=== PATIENT | male | born 1995 | race Caucasian/White ===

== ENCOUNTER 2018-11-21 15:19 | Emergency (ER) | payer SELFPAY ==
[~2018-11-21] VITALS: Ht 162.6 cm; Wt 58.2 kg
[~2018-11-21 15:19] MED LIST: IBUP100S2 PO
[2018-11-21 15:25] VITALS: BP 133/66
--- NOTE | 2018-11-21 15:42 | NUR ---
PATIENT PRESENTS TO ED WITH C/O LT ARM/WRIST PAIN, SMALL ABRASION ON LT KNEE S/P FALL TODAY. PT DENIES LOC; AAOX4. PT STATES PAIN IS 8/10 AT THIS TIME. LIMITED ROM TO AFFECTED EXTREMITIES. +PULSES. CAP REFILL <3 SECS. VSS; PATIENT POSITIONED FOR COMFORT; HOB ELEVATED; BEDRAILS UP X1; BED DOWN.
--- NOTE | 2018-11-21 15:52 | NUR ---
DR KIMBLE AT PT BEDSIDE
[2018-11-21] MEDS ORDERED: BACITRACIN OINT 500 UNITS/GM PKT TP ONE (16:00)
[2018-11-21] MEDS ORDERED: ACETAMINOPHEN 325 MG TAB PO ONE (16:00)
--- NOTE | 2018-11-21 16:03 | NUR ---
BILLY EMT AT BEDSIDE FOR WOUND CARE AND SPLINT APPLIED TO L WRIST. PULSE WNL.
--- NOTE | 2018-11-21 16:23 | NUR ---
PAIN 07/05 AT THIS TIME
[2018-11-21 16:24] VITALS: BP 116/64
--- NOTE | 2018-11-21 16:24 | NUR ---
Patient discharged with v/s stable. Written and verbal after care instructions given and explained. Patient alert, oriented and verbalized understanding of instructions. Ambulatory with steady gait. All questions addressed prior to discharge. ID band removed. Patient advised to follow up with PMD. Rx of ACETOMINOPHEN, BACITRACIN given. Patient educated on indication of medication including possible reaction and side effects. Opportunity to ask questions provided and answered.
== END 2018-11-21 16:24 | disposition home or self-care (01) ==
LOC: MED 15:19
DX: S63.502A Unspecified sprain of left wrist, initial encounter (principal); S80.212A Abrasion, left knee, initial encounter; V28.4XXA Motorcycle driver injured in noncollision transport accident in traffic accident, initial encounter; Y93.55 Activity, bike riding; Y92.410 Unspecified street and highway as the place of occurrence of the external cause; Y99.8 Other external cause status; Z79.899 Other long term (current) drug therapy
CPT/HCPCS: 73090; 99283

== ENCOUNTER 2018-11-26 10:55 | Emergency (ER) | payer SELFPAY ==
[~2018-11-26] VITALS: Ht 162.6 cm; Wt 57.2 kg
[2018-11-26 11:26] VITALS: BP 123/89
--- NOTE | 2018-11-26 12:14 | NUR ---
PT TAKEN TO ER BED 02
--- NOTE | 2018-11-26 12:14 | NUR ---
PT AMBULATED TO BED 2 AT THIS TIME
[2018-11-26] MEDS ORDERED: NEOMYCIN/POLYMYXIN/BACITRACIN 0.9 GM/1 PKT TP ONE ×2 (13:00)
[2018-11-26] MEDS ORDERED: cefTRIAXone 1,000 MG in LIDOCAINE 1% ***ER ONLY *** 2.1 ML IM ONE (13:00)
[2018-11-26] MEDS ORDERED: LIDOCAINE 1% 500 MG/50 ML VIAL INJ ONE (13:00)
[2018-11-26] MEDS ORDERED: cefTRIAXone 1,000 MG VIAL ONE (13:17)
[2018-11-26] MEDS ORDERED: LIDOCAINE MPF 1% - 5 mL VIAL 10 ML ONE (13:18)
--- NOTE | 2018-11-26 15:19 | NUR ---
Patient discharged with v/s stable. Written and verbal after care instructions given and explained. Patient alert, oriented and verbalized understanding of instructions. Ambulatory with steady gait. All questions addressed prior to discharge. ID band removed. Patient advised to follow up with PMD. Rx of keflex, ibuprofen, bactrim given. Patient educated on indication of medication including possible reaction and side effects. Opportunity to ask questions provided and answered.
[2018-11-26 15:20] VITALS: BP 125/68
== END 2018-11-26 15:19 | disposition home or self-care (01) ==
LOC: MED 10:55
DX: S01.21XA Laceration without foreign body of nose, initial encounter (principal); Z79.899 Other long term (current) drug therapy; W17.89XA Other fall from one level to another, initial encounter; Y93.89 Activity, other specified; Y92.89 Other specified places as the place of occurrence of the external cause; Y99.8 Other external cause status
CPT/HCPCS: 12011; 70450; 70486; 72125; 90471; 90715; 96372; 99284; J0696; J2001

== ENCOUNTER 2018-12-08 12:13 | Emergency (ER) | payer SELFPAY ==
[~2018-12-08] VITALS: Ht 162.6 cm; Wt 59.0 kg
[2018-12-08 12:15] VITALS: BP 119/75
--- NOTE | 2018-12-08 12:20 | NUR ---
Patient ambulated to bed 12. RN evaluating patient at bedside.
--- NOTE | 2018-12-08 12:30 | NUR ---
PT IS A 23 Y/O MALE WHO PRESENTS TO THE ED C/O SUTURE REMOVAL. PER PT PT HAS SUTURES TO BRIDGE OF NOSE ON 11/26/18. PT DENIES PAIN AT THIS TIME. NOTED SUTURES TO BRIDGE OF NOSE, APPEARS BARILL[place] WHITE CRUST. PT DENIES CP, SOB, N/V/D. PT AWAKE AND ALERT, RR EVEN/UNLABORED. PT REPOSITIONED FOR COMFORT, BED IN LOWEST POSITION. ER MD DR. SHEETS NOTIFIED. WILL CONTINUE TO MONITOR. DENIES PMH NKA
--- NOTE | 2018-12-08 12:32 | NUR ---
Dr. Coburn evaluating patient at bedside.
[2018-12-08] MEDS ORDERED: NEOMYCIN/POLYMYXIN/HC OT SOL. 10 ML BTL ONE (12:46)
--- NOTE | 2018-12-08 12:50 | NUR ---
Patient discharged with v/s stable. Written and verbal after care instructions given and explained. Patient alert, oriented and verbalized understanding of instructions. Ambulatory with steady gait. All questions addressed prior to discharge. ID band removed. Patient advised to follow up with PMD. . Opportunity to ask questions provided and answered.
[2018-12-08 13:00] VITALS: BP 119/75
== END 2018-12-08 12:50 | disposition home or self-care (01) ==
LOC: MED 12:13
DX: Z48.01 Encounter for change or removal of surgical wound dressing (principal); Z79.1 Long term (current) use of non-steroidal anti-inflammatories (NSAID)
CPT/HCPCS: 99282

== ENCOUNTER 2019-02-16 14:21 | Emergency (ER) | payer MEDICAID ==
[~2019-02-16] VITALS: Ht 170.2 cm; Wt 63.5 kg
[2019-02-16 14:21] VITALS: BP 107/55
--- NOTE | 2019-02-16 14:21 | NUR ---
PT WAS IN BED AT 1410. NARCAN ADMINSTERED AT 1420 AND 1422
--- NOTE | 2019-02-16 14:21 | NUR ---
BIB FRIENDS FOR ALOC. NONRESPONSIVE TO PAINFUL STIMULI. UNREPSONSIVE TO STERNAL RUB. UNRESPONSIVE TO AMMONIA. PIN POINT PUPILS. FLACCID ARMS. GCS 3. RADIAL PULSE WEAK. WHEELCHAIRED TO BED 9, PLACED ON MONITOR. IV INSERTED. ERMD PRESENT. PMH- UNKNOWN
--- NOTE | 2019-02-16 14:21 | NUR ---
PT IN WHEELCHAIR TO ER BED 09
--- NOTE | 2019-02-16 14:21 | NUR ---
DR OCHOA AT BEDSIDE.
--- NOTE | 2019-02-16 14:29 | NUR ---
NARCAN DOSE 2 MG IVP, PATIENT RESPONDING AFTER FIRST DOSE OF NARCAN
--- NOTE | 2019-02-16 14:33 | NUR ---
PT RESPONDING TO ANSWERS. VSS. ALERT AND AWAKE.
[2019-02-16] MEDS ORDERED: NALOXONE 0.4 MG/ML VIAL IVP ONE ×2 (14:35)
--- NOTE | 2019-02-16 14:37 | NUR ---
1 L FLUID BOLUS STARTED MO DR DON KOHLI
[2019-02-16] MEDS ORDERED: NACL 0.9% 1,000 ML IV ONE (14:40)
--- NOTE | 2019-02-16 14:46 | NUR ---
PT INFORMED THAT URINE SAMPLE IS NEEDED
--- NOTE | 2019-02-16 14:49 | NUR ---
PATIENT STATES THAT HE TOOK HALF A PILL OF PERCOCET, UNKNOWN MG AND UNKNOWN TIME
--- NOTE | 2019-02-16 14:59 | NUR ---
LAB AT BEDSIDE
--- NOTE | 2019-02-16 14:59 | NUR ---
SPOKE WITH CHI FROM POISON CONTROL, RECOMMENDS MONITOR FOR AT LEAST 4 HOURS, COMPLETE METABOLIC PANEL, AND TOXIC SCREEN.
--- NOTE | 2019-02-16 15:05 | NUR ---
VSS AT THIS TIME.
[2019-02-16 15:11] LABS: BASOPHILS # (AUTO) 0.1 K/uL (0.00-0.22); BASOPHILS % (AUTO) 0.9 % (0.0-2.0); EOSINOPHILS # (AUTO) 0.1 K/uL (0-0.4); EOSINOPHILS % (AUTO) 0.8 % (0.0-4.0); HEMATOCRIT 39.8 % (36-52); HEMOGLOBIN 13.3 g/dL (12.0-18.0); LYMPHOCYTES # (AUTO) 1.5 K/uL (2.0-11.5); LYMPHOCYTES % (AUTO) 21.2 % (20.5-51.1); MEAN CORPUSCULAR HEMOGLOBIN 31 pg (27-31); MEAN CORPUSCULAR HGB CONC 33 g/dL (33-37); MEAN CORPUSCULAR VOLUME 93.1 fL (80-94); MONOCYTES # (AUTO) 0.6 K/uL (0.8-1.0); MONOCYTES % (AUTO) 8.4 % (1.7-9.3); NEUTROPHILS % (AUTO) 68.7 % (42.2-75.2); PLATELET COUNT (AUTO) 197 K/uL (140-450); RED BLOOD CELL COUNT(AUTO) 4.27 MIL/uL (4.20-6.10); RED CELL DISTRIBUTION WIDTH 14.1 % (11.6-13.7); WHITE BLOOD COUNT (AUTO) 7.3 K/uL (4.8-10.8)
--- NOTE | 2019-02-16 15:19 | NUR ---
PT UNABLE TO GIVE URINE, WATER GIVEN TO PT
--- NOTE | 2019-02-16 15:22 | NUR ---
PT AA0X4. RESPONDING TO VOICE. MILD ARM WEAKNESS, EQUAL ARM METAL BALER. FACIAL SYMMETRY. MEMORY INTACT.
--- NOTE | 2019-02-16 15:25 | NUR ---
BRISK PUPIL REACTION, 2MM, PERRLA
[2019-02-16] MEDS ORDERED: AMMONIA AROMATIC 1 INHL INH ONE (15:30)
[2019-02-16 15:32] LABS: ANION GAP 14.7 (8-16); CARBON DIOXIDE 26.3 mmol/L (21-32); TOTAL BILIRUBIN 0.8 mg/dL (0.0-1.0)
--- NOTE | 2019-02-16 15:55 | NUR ---
# 14 FR Urinary catheter inserted utilizing sterile technique. Immediate return of 50 ml YELLOW urine noted. Urine sample collected and sent to lab. Pt tolerated procedure WELL.
--- NOTE | 2019-02-16 16:07 | NUR ---
AA0X4. [place] TO VOICE. CLEAR SPEECH. PT RESTING IN BED AND BEING COOPERATIVE. MILD WEAKNESS IN BOTH ARMS-PURPOSEFULL MOVEMENT. PUPILS 2 MM AND RESPONSIVE TO LIGHT.
[2019-02-16 16:19] LABS: BARBITURATE, URINE NEG. ng/ml (NEG <=200); BENZODIAZEPINE, URINE POS. ng/mL (NEG <=200); CANNABINOID, URINE POS. ng/mL (NEG <=50); COCAINE, URINE NEG. ng/mL (NEG <=300); OPIATE, URINE NEG. ng/mL (NEG <=2000); PHENCYCLIDINE SCREEN,URINE NEG. ng/mL (NEG <=25)
[2019-02-16 16:56] LABS: APPEARANCE,URINE CLEAR (CLEAR); BILIRUBIN,URINE NEGATIVE (NEGATIVE); BLOOD, URINE 1+ (NEGATIVE); COLOR,URINE YELLOW (YELLOW); LEUKOCYTE ESTERASE ,URINE NEGATIVE (NEGATIVE); NITRITE, URINE NEGATIVE (NEGATIVE); UGLUCOSE NEGATIVE (NEGATIVE)
--- NOTE | 2019-02-16 16:57 | NUR ---
vss at this time. pt aa0x4. resting in bed, calm and relaxed. arousable to name. rr even and unlabored.
--- NOTE | 2019-02-16 17:04 | NUR ---
dr petersen at bedside, instructed to give another dose of narcan if rr reach below 7
[2019-02-16 17:11] LABS: RBC,URINE 0-5 /HPF (0-5); WBC,URINE 0-5 /HPF (0-5)
--- NOTE | 2019-02-16 17:48 | NUR ---
VSS AT THIS TIME. GCS 15. PT AA0X4. WISHES TO SLEEP AT THIS TIME. BROTHER BEDSIDE.
--- NOTE | 2019-02-16 19:29 | NUR ---
dr petersen at bedside
[2019-02-16 19:49] VITALS: BP 98/55
--- NOTE | 2019-02-16 19:49 | NUR ---
Patient discharged with v/s stable. Written and verbal after care instructions given and explained. Patient alert, oriented and verbalized understanding of instructions. Ambulatory with steady gait. All questions addressed prior to discharge. ID band removed. Patient advised to follow up with PMD. Rx of NARCAN given. Patient educated on indication of medication including possible reaction and side effects. Opportunity to ask questions provided and answered.
== END 2019-02-16 19:49 | disposition home or self-care (01) ==
LOC: MED 14:21
DX: T40.2X1A Poisoning by other opioids, accidental (unintentional), initial encounter (principal); Z79.899 Other long term (current) drug therapy; Y92.89 Other specified places as the place of occurrence of the external cause
CPT/HCPCS: 36415; 80053; 80305; 81001; 82550; 85025; 93005; 96374; 96375; 99291; C1758; J7030

== ENCOUNTER 2021-01-20 00:45 | Emergency (ER) | payer MEDICAID, OTHER ==
[~2021-01-20] VITALS: Ht 162.6 cm; Wt 63.5 kg
[2021-01-20 00:50] VITALS: BP 122/70
[2021-01-20] MEDS ORDERED: cefTRIAXone 1,000 MG in LIDOCAINE MPF 1% 2.1 ML IM ONE (04:45)
[2021-01-20] MEDS ORDERED: LIDOCAINE MPF 1% 5 ML ONE (05:13)
[2021-01-20] MEDS ORDERED: cefTRIAXone 1,000 MG VIAL ONE (05:13)
[2021-01-20] MEDS ORDERED: AMOX-1000 PO (05:27)
[2021-01-20 05:35] VITALS: BP 122/70
== END 2021-01-20 05:35 | disposition home or self-care (01) ==
LOC: MED 00:45
DX: J02.9 Acute pharyngitis, unspecified (principal)
CPT/HCPCS: 96372; 99283; J0696; J2001

== ENCOUNTER 2021-12-16 04:54 | Emergency (ER) | payer OTHER ==
[~2021-12-16] VITALS: Ht 162.6 cm; Wt 59.0 kg
[~2021-12-16 04:54] MED LIST changes: +AMOX-1000 PO
[2021-12-16 05:05] VITALS: BP 133/78
--- NOTE | 2021-12-16 05:12 | NUR ---
Patient ambulated to bed 12.
--- NOTE | 2021-12-16 05:18 | NUR ---
Dr. Silva examining patient.
[2021-12-16] MEDS ORDERED: KETOROLAC 30 MG/ML VIAL IM ONE (05:30)
[2021-12-16] MEDS ORDERED: NAPR-54 PO (05:34)
[2021-12-16] MEDS ORDERED: ACET-10509 PO (05:34)
[2021-12-16] MEDS ORDERED: AMOX500C25 PO (05:34)
[2021-12-16] MEDS ORDERED: HYDROcodone/APAP 5/325 MG 1 TAB TAB PO ONE (05:35)
--- NOTE | 2021-12-16 05:41 | NUR ---
26 Y/O MALE BIBS FROM HOME, C/O sore throat x 3 days. Patient reported, had sore throat, chest wall pain, cough, congestion for 3 days. PT IS A/OX4, GCS-15; AMBULATORY W/O ASSISTANCE; UNLABORED BREATHING AND SPEAKING IN FULL SENTENCES, NO WHEEZING, LUNGS CLEAR. PT STATES HE WAITED 3 DAYS TO SEE IF HOME REMEDIES WOULD WORK FIRST, NO RELIEF. PMHx: DENIES
[2021-12-16 05:48] VITALS: BP 133/78
--- NOTE | 2021-12-16 05:49 | NUR ---
Patient discharged with v/s stable. Written and verbal after care instructions given and explained. Patient alert, oriented and verbalized understanding of instructions. Ambulatory with steady gait. All questions addressed prior to discharge. ID band removed. Patient advised to follow up with PMD. Rx of AMOXICILLIN, TYLENOL ES, AND NAPROSYN given. Patient educated on indication of medication including possible reaction and side effects. Opportunity to ask questions provided and answered. VSS, A/OX4, UNLABORED BREATHING, AMBULATORY, AND CALM DEMEANOR.
== END 2021-12-16 05:48 | disposition home or self-care (01) ==
LOC: MED 04:54
DX: J02.9 Acute pharyngitis, unspecified (principal); Z90.49 Acquired absence of other specified parts of digestive tract; Z87.891 Personal history of nicotine dependence
CPT/HCPCS: 96372; 99283; J1885

== ENCOUNTER 2022-02-28 13:07 | Emergency (ER) | payer OTHER ==
[~2022-02-28] VITALS: Ht 165.1 cm; Wt 65.3 kg
[~2022-02-28 13:07] MED LIST changes: +ACET-10509 PO; +AMOX500C25 PO; +NAPR-54 PO
--- NOTE | 2022-02-28 13:12 | NUR ---
PT AMB TO BED 8.
[2022-02-28 13:13] VITALS: BP 137/58
--- NOTE | 2022-02-28 13:21 | NUR ---
26/M PRESENTS TO ED WITH C/O RIGHT KNEE PAIN X3 WEEKS, DENIES RECENT INJURY OR TRAUMA, DENIES TAKING MEDS FOR PAIN. NO OBVIOUS SIGNS OF DEFORMITY, PATIENT AMBULATORY UPON ARRIVAL TO ED, NO REDNESS OR TENDERNESS NOTED.
[2022-02-28] MEDS ORDERED: IBUPROFEN 600 MG TAB PO ONE (13:35)
--- NOTE | 2022-02-28 14:13 | NUR ---
cheri wrap x 1 to rt knee + cms
[2022-02-28] MEDS ORDERED: IBUP-2213 PO (14:20)
--- NOTE | 2022-02-28 14:29 | NUR ---
Patient discharged with v/s stable. Written and verbal after care instructions given FOR KNEE SPRAIN and explained. Patient alert, oriented and verbalized understanding of instructions. Ambulatory with steady gait. All questions addressed prior to discharge. ID band removed. Patient advised to follow up with PMD. Rx of IBUPROFEN given. Patient educated on indication of medication including possible reaction and side effects. Opportunity to ask questions provided and answered.
== END 2022-02-28 14:28 | disposition home or self-care (01) ==
LOC: MED 13:07
DX: S83.91XA Sprain of unspecified site of right knee, initial encounter (principal); R03.0 Elevated blood-pressure reading, without diagnosis of hypertension; Z79.2 Long term (current) use of antibiotics; Z79.899 Other long term (current) drug therapy; Z79.1 Long term (current) use of non-steroidal anti-inflammatories (NSAID); X58.XXXA Exposure to other specified factors, initial encounter; Y92.89 Other specified places as the place of occurrence of the external cause; Y93.89 Activity, other specified; Y99.8 Other external cause status
CPT/HCPCS: 73562; 99283

== ENCOUNTER 2023-10-30 10:50 | Emergency (ER) | payer OTHER ==
[~2023-10-30] VITALS: Ht 162.6 cm; Wt 60.4 kg
[~2023-10-30 10:50] MED LIST changes: +IBUP-2213 PO; +NAPR-337 PO; -NAPR-54 PO
[2023-10-30 11:02] VITALS: BP 172/74; PULSE 67; RESP 18; TEMP 98.2; O2SAT 100
[2023-10-30 11:39] LABS: BASOPHILS # (AUTO) 0.1 K/uL (0.00-0.22); BASOPHILS % (AUTO) 0.7 % (0.0-2.0); EOSINOPHILS # (AUTO) 0.1 K/uL (0-0.4); EOSINOPHILS % (AUTO) 0.5 % (0.0-4.0); HEMATOCRIT 43.3 % (36-52); HEMOGLOBIN 14.9 g/dL (12.0-18.0); LYMPHOCYTES % (AUTO) 18.2 % (20.5-51.1); MEAN CORPUSCULAR HEMOGLOBIN 32 pg (27-31); MEAN CORPUSCULAR HGB CONC 34 g/dL (33-37); MEAN CORPUSCULAR VOLUME 92.9 fL (80-94); MONOCYTES # (AUTO) 0.9 K/uL (0.8-1.0); MONOCYTES % (AUTO) 8.4 % (1.7-9.3); NEUTROPHILS # (AUTO) 7.9 K/uL (1.8-7.7); NEUTROPHILS % (AUTO) 72.2 % (42.2-75.2); PLATELET COUNT (AUTO) 209 K/uL (140-450); RED BLOOD CELL COUNT(AUTO) 4.66 MIL/uL (4.20-6.10); RED CELL DISTRIBUTION WIDTH 15.3 % (11.6-13.7); WHITE BLOOD COUNT (AUTO) 10.9 K/uL (4.8-10.8)
[2023-10-30 11:50] LABS: ANION GAP 14.3 (8-16); CALCIUM 9.4 mg/dL (8.5-10.1); CARBON DIOXIDE 26.7 mmol/L (21-32); CREATININE 0.8 mg/dL (0.6-1.3)
[2023-10-30 11:55] LABS: BILIRUBIN,URINE 1+ (NEGATIVE); COLOR,URINE YELLOW (YELLOW); LEUKOCYTE ESTERASE ,URINE 2+ (NEGATIVE); NITRITE, URINE NEGATIVE (NEGATIVE); PH,URINE 6.5 (5.0-9.0); PROTEIN,URINE 1+ (NEGATIVE); UGLUCOSE NEGATIVE (NEGATIVE); UROBILINOGEN,URINE 0.2 EU/dL (0.2 - 1)
[2023-10-30 11:59] LABS: ALBUMIN 4.4 g/dL (3.4-5.0); BILIRUBIN,DIRECT 0.2 mg/dL (0.0-0.3); TOTAL BILIRUBIN 0.9 mg/dL (0.0-1.0); TOTAL PROTEIN, SERUM 7.9 g/dL (6.4-8.2)
[2023-10-30 12:09] LABS: APPEARANCE,URINE HAZY (CLEAR)
[2023-10-30 12:14] LABS: ICTOTEST NEGATIVE (NEGATIVE)
[2023-10-30 12:15] LABS: WBC,URINE 60-80 /HPF (0-5)
[2023-10-30 12:16] LABS: BACTERIA,URINE FEW /HPF (None Seen); SQUAMOUS EPITHELIAL CELL,UR 0-3 (FEW) /LPF (0-3 (FEW))
[2023-10-30 12:17] LABS: BLOOD, URINE 1+ (NEGATIVE); MUCUS,URINE 1+ /LPF (None Seen)
[2023-10-30] MEDS ORDERED: cefTRIAXone 1,000 MG VIAL ONE (12:39)
[2023-10-30] MEDS ORDERED: DOXY-690 PO (14:22)
[2023-10-30] MEDS: metroNIDAZOLE 500 MG TAB PO SCH (14:44)
[2023-10-30] MEDS: metroNIDAZOLE 250 MG TAB PO ONE (14:47)
[2023-10-30 14:49] VITALS: BP 112/67; PULSE 98; RESP 15; TEMP 98.2; O2SAT 99
[2023-10-30 16:43] LABS: NEISSERIA GONORRHOEAE PCR Detected (NOTdetected)
== END 2023-10-30 14:50 | disposition home or self-care (01) ==
LOC: MED 10:50
DX: N34.2 Other urethritis (principal); A54.9 Gonococcal infection, unspecified; Z20.2 Contact with and (suspected) exposure to infections with a predominantly sexual mode of transmission; Z79.1 Long term (current) use of non-steroidal anti-inflammatories (NSAID); Z79.2 Long term (current) use of antibiotics; Z79.899 Other long term (current) drug therapy
CPT/HCPCS: 36415; 80048; 80076; 81001; 83690; 85025; 87086; 87491; 96365; 99284; J0696